=== PATIENT | female | born 1975 | race Two or more races ===

== ENCOUNTER 2022-02-08 12:46 | Emergency (ER) | payer OTHER, SELFPAY ==
[2022-02-08] VITALS (23 sets, daily range): BP systolic 113–135; BP diastolic 57–74; PULSE 89–101; RESP 18; TEMP 36.8; O2SAT 97–100; BMI 33.3
--- NOTE | 2022-02-08 13:37 | CRLHL7_ITS ---
For Patients: As a result of the Century Cures Act, medical imaging exams and procedure reports are released immediately into your electronic medical record. You may view this report before your referring provider. If you have questions, please contact your health care provider. Etiologies and has Crohn`s. INDICATION: Right abdominal pain. COMPARISON: None. TECHNIQUE: Technique: TECHNIQUE: Noncontrast CT of the abdomen pelvis. COMPARISON: None. FINDINGS: Lung bases are clear. No pericardial effusion. Normal liver size and contour. There is trace perihepatic free fluid. The gallbladder is not identified. There is no biliary dilatation. Adrenal glands normal. Midline bilateral nonobstructing renal calculi. No significant abnormality of the stomach, duodenum or pancreas. Spleen is surgically absent. Both normal course and caliber of the abdominal aorta and the IVC. There is no lymphadenopathy. Uterus and bladder are unremarkable. No bowel obstruction. Diverticulosis without evidence of acute diverticulitis. There is severe distal ileal wall thickening and gera-enteric fat stranding involving a long segment of distal terminal ileum (series 2 image [id number]; series 4 image 24). The appendix is normal. Thyroid with no acute osseus abnormality. IMPRESSION: 1. Long segment distal ileal inflammation and wall thickening consistent with an infectious or inflammatory enteritis. 2. Small volume ascites which is likely reactive. Please note that all CT scans at this facility use dose modulation, iterative reconstruction, and/or weight-based dosing when appropriate to reduce radiation dose to as low as reasonably achievable. Dictated by Brian Macario MD @ 02/08/2022 2:33:02 PM (Electronically Signed)
--- NOTE | 2022-02-08 13:39 | ED.ABDPAIN ---
HPI - Abdominal Pain General Chief Complaint: Abdominal Pain Stated Complaint: Abdominal pain Time Seen by Provider: 02/08/22 12:49 History of Present Illness HPI narrative: This 46-year-old female comes in with abdominal pain that began 5 days ago. She states that it was crampy and intermittent at that time but has become more constant now. The pain is now more localized in the right abdomen. She states that it seems to be worse with food. The pain does not radiate to her shoulder or back. She does not report any fevers. She did have vomiting on the 1st day of the pain. She has also had some diarrhea during this time. She denies having any fevers. She does have a remote history of Hodgkin's lymphoma at age 10 and recovered from that. She also states that she has a diagnosis of lupus. She is not currently taking any medications. Her abdominal pain has worsened and become more constant over these days. Last night it was 10/10 in pain. She states the pain is worse with any kind of movement. The car ride here caused pain with every little bump her quiver that she encountered. Related Data Home Medications Medication Instructions Recorded Confirmed levothyroxine 125 mcg capsule 125 mcg PO DAILY 02/08/22 02/08/22 omeprazole 40 mg capsule,delayed 40 mg PO DAILY 02/08/22 02/08/22 release zertec 02/08/22 Previous Rx's Medication Instructions Recorded hydrocodone 5 mg-acetaminophen 325 1 tab PO Q4-6H PRN pain #15 tabs 02/08/22 mg tablet methylprednisolone 4 mg tablets in See Rx Instructions PO .COMPLEX 02/08/22 a dose pack (Medrol (Cristian)) #21 ea ondansetron HCl 4 mg tablet 4 mg PO Q6H #20 tabs 02/08/22 Allergies Allergy/AdvReac Type Severity Reaction Status Date / Time ceftriaxone [From Rocephin] Allergy Severe Hives Verified 02/08/22 13:06 aspirin Allergy Mild Vomiting Verified 02/08/22 13:06 penicillin G Allergy Mild Verified 02/08/22 13:06 Review of Systems Status of ROS Reports: 10 or more systems reviewed and unremarkable except as noted in History and below Narrative Constitutional: No fevers, no weight gain or loss. Eyes: No discharge. No vision changes. HENT: No congestion, no sore throat, no ear pain. Cardiovascular: No chest pain, no palpitations. Respiratory: No shortness of breath, no wheezes, no cough. Gastrointestinal: Abdominal pain with some episodes of vomiting and diarrhea as described above. Genitourinary: No dysuria, no hematuria. Musculoskeletal: Normal range of motion. Skin: No rashes, no pruritis. Neurological: No dizziness, weakness, sensory change, speech change. Endo/Heme/Allergies: No bruising or bleeding. No polydipsia. Pysch: no suicidality, no anxiety, no insomnia. All other systems reviewed and are negative. PFSH [facility] Social History Smoking Status: Unknown if ever smoked Exam Narrative: Exam Narrative: Constitutional: Well-developed, well-nourished, no acute distress. HEENT: Normocephalic, atraumatic. Neck: Normal range of motion. Nontender. Supple. Heart: Regular. No murmurs. Normal rate. Intact distal pulses. Lungs: Clear to auscultation. No chest discomfort. No wheezes, rhonchi, or rales. Abdomen: Normal bowel sounds. Diffuse tenderness but worsening on the right abdomen. The focus of the pain appears to be more in the right upper quadrant. Rovsing sign is positive. Mild rebound tenderness. Genitalia: Deferred. Back: No midline tenderness. Normal range of motion. Extremities: Normal range of motion. No injury. Skin: Intact. No rash. Warm. No erythema or pallor. Neurologic: No altered sensation. No weakness. Alert and oriented. Psychiatric: No suicidality. No anxiety or depression. No insomnia. Nursing notes and vitals signs are reviewed. Const: Vital Signs, click to edit/add: Vital Signs - 24 hr 02/08/22 13:00 02/08/22 13:35 02/08/22 13:45 Temperature 98.2 F Pulse Rate 93 93 Pulse Rate [Left P ulse Oximeter] 99 Respiratory Rate 18 Blood Pressure Blood Pressure [Ri ght Upper Arm] 128/71 Pulse Oximetry 97 97 97 Oxygen Delivery Me thod Room Air Room Air 02/08/22 14:24 02/08/22 14:25 02/08/22 14:30 Temperature Pulse Rate 91 95 90 Pulse Rate [Left P ulse Oximeter] Respiratory Rate Blood Pressure 135/72 Blood Pressure [Ri ght Upper Arm] Pulse Oximetry 97 97 97 Oxygen Delivery Me thod 02/08/22 14:32 02/08/22 14:33 02/08/22 14:45 Temperature Pulse Rate 89 90 89 Pulse Rate [Left P ulse Oximeter] Respiratory Rate Blood Pressure 116/66 Blood Pressure [Ri ght Upper Arm] Pulse Oximetry 97 97 97 Oxygen Delivery Me thod 02/08/22 15:00 02/08/22 15:01 02/08/22 15:15 Temperature Pulse Rate 91 91 93 Pulse Rate [Left P ulse Oximeter] Respiratory Rate Blood Pressure 113/61 Blood Pressure [Ri ght Upper Arm] Pulse Oximetry 97 97 97 Oxygen Delivery Me thod 02/08/22 15:30 02/08/22 15:31 02/08/22 15:45 Temperature Pulse Rate 91 90 90 Pulse Rate [Left P ulse Oximeter] Respiratory Rate Blood Pressure 117/68 Blood Pressure [Ri ght Upper Arm] Pulse Oximetry 99 99 97 Oxygen Delivery Me thod 02/08/22 16:00 02/08/22 16:01 02/08/22 16:15 Temperature Pulse Rate 100 98 101 H Pulse Rate [Left P ulse Oximeter] Respiratory Rate Blood Pressure 114/57 L Blood Pressure [Ri ght Upper Arm] Pulse Oximetry 99 99 99 Oxygen Delivery Me thod Course Vital Signs Vital signs: Initial Vital Signs Temperature 98.2 F 02/08/22 13:00 Temperature Source Temporal Artery Scan 02/08/22 13:00 Pulse Rate 99 02/08/22 13:00 Pulse Rhythm 02/08/22 13:00 Respiratory Rate 18 02/08/22 13:00 Blood Pressure 128/71 02/08/22 13:00 Blood Pressure Mean 90 02/08/22 13:00 Blood Pressure Position Sitting 02/08/22 13:00 Pulse Oximetry 97 02/08/22 13:00 Oxygen Delivery Method 02/08/22 13:00 Vital Signs Temperature 98.2 F 02/08/22 13:00 Pulse Rate 99 02/08/22 13:00 Respiratory Rate 18 02/08/22 13:00 Blood Pressure 128/71 02/08/22 13:00 Pulse Oximetry 97 02/08/22 13:00 Oxygen Delivery Method 02/08/22 13:00 Temperature 98.2 F 02/08/22 13:00 Pulse Rate 101 H 02/08/22 16:15 Respiratory Rate 18 02/08/22 13:00 Blood Pressure 114/57 L 02/08/22 16:01 Pulse Oximetry 99 02/08/22 16:15 Oxygen Delivery Method 02/08/22 13:35 MDM - Abdominal Pain MDM Narrative Medical decision making narrative: This patient comes in with abdominal pain that is more focused in the right mid abdomen. There is suspicion of gallbladder disease or possible appendicitis. The patient states that she does not at all care for IV contrast so a CT scan was done without contrast. This returns with evidence of a segment of the ileum that is inflamed. Lab results returned with just slightly elevated white count at 12. Her sed rate is normal at 17. I spoke with the surgeon on-call, Dr. Alicea, about these findings. It seemed to her that this was an inflammatory process and not an infectious process. The patient does have a history of lupus and autoimmune thyroiditis. This could be a presentation of Crohn's disease. There were no skip lesions on the CT scan however. The patient has normal vital signs and is not appearing toxic. She wishes to return home and is okay to do so. She did receive a L of normal saline intravenously and a dose of Solu-Medrol 125 mg. I advised her to follow-up with [facility] or return to the ER if worsening symptoms occur. She received prescriptions for [place], Zofran, and Medrol Dosepak. Lab Data Labs: Lab Results 02/08/22 02/08/22 02/08/22 Range/Units 13:38 14:15 14:15 WBC 12.01 H (4.50-11.00) K/uL RBC 3.89 L (4.00-5.20) m/uL Hgb 9.6 L (12.0-16.0) gm/dL Hct 31.2 L (33.0-51.0) % MCV 80 (80-100) fL MCH 25 L (26-34) pg MCHC 31 L (32-36) gm/dL RDW Coeff of Ko 20.5 H (11.5-15.5) % Plt Count 471 H (140-440) K/uL Neut % (Auto) 68.1 (42.0-72.0) % Lymph % (Auto) 20.7 (20-44) % [place] % (Auto) 9.6 (0.0-11.0) % Eos % (Auto) 1.0 (0.0-7.0) % Baso % (Auto) 0.4 (0.0-3.0) % Neut # (Auto) 8.20 H (1.7-7.0) K/uL Lymph # (Auto) 2.50 (0.90-2.90) K/uL [place] # (Auto) 1.20 H (0.00-0.90) K/UL Eos # (Auto) 0.10 (0.00-0.50) K/uL Baso # (Auto) 0.00 (0.00-0.30) K/uL ESR 17 (2-20) mm/hr Sodium (135-149) mmol/L Potassium (3.6-5.1) mmol/L Chloride (96-114) mmol/L Carbon Dioxide (20-32) mmol/L BUN (5-24) mg/dL Creatinine (0.5-1.5) mg/dL Estimated Creat Clear Estimated GFR ml/min Glucose (60-115) mg/dL Calcium (8.4-10.6) mg/dL Total Bilirubin (0.1-1.5) mg/dL Direct Bilirubin (0.0-0.5) mg/dL AST (12-35) U/L ALT (4-35) U/L Alkaline Phosphatase (40-150) U/L C-Reactive Protein (0.5-1.0) mg/dL Total Protein (6.0-8.3) g/dL Albumin (3.3-5.0) g/dL Lipase (23-300) U/L POC Troponin I 0.01 (0.01-0.04) ng/ml 02/08/22 Range/Units 14:15 WBC (4.50-11.00) K/uL RBC (4.00-5.20) m/uL Hgb (12.0-16.0) gm/dL Hct (33.0-51.0) % MCV (80-100) fL MCH (26-34) pg MCHC (32-36) gm/dL RDW Coeff of Ko (11.5-15.5) % Plt Count (140-440) K/uL Neut % (Auto) (42.0-72.0) % Lymph % (Auto) (20-44) % [place]field % (Auto) (0.0-11.0) % Eos % (Auto) (0.0-7.0) % Baso % (Auto) (0.0-3.0) % Neut # (Auto) (1.7-7.0) K/uL Lymph # (Auto) (0.90-2.90) K/uL [place]field # (Auto) (0.00-0.90) K/UL Eos # (Auto) (0.00-0.50) K/uL Baso # (Auto) (0.00-0.30) K/uL ESR (2-20) mm/hr Sodium 138 (135-149) mmol/L Potassium 3.2 L (3.6-5.1) mmol/L Chloride 105 (96-114) mmol/L Carbon Dioxide 27 (20-32) mmol/L BUN 8 (5-24) mg/dL Creatinine 0.5 (0.5-1.5) mg/dL Estimated Creat Clear 162.58 Estimated GFR 116 ml/min Glucose 114 (60-115) mg/dL Calcium 9.1 (8.4-10.6) mg/dL Total Bilirubin 0.4 (0.1-1.5) mg/dL Direct Bilirubin 0.2 (0.0-0.5) mg/dL AST 63 H (12-35) U/L ALT 25 (4-35) U/L Alkaline Phosphatase 73 (40-150) U/L C-Reactive Protein 1.3 H (0.5-1.0) mg/dL Total Protein 7.2 (6.0-8.3) g/dL Albumin 4.0 (3.3-5.0) g/dL Lipase 87 (23-300) U/L POC Troponin I (0.01-0.04) ng/ml Imaging Data CT scan - abdomen: Radiologist's impression: FINDINGS: Lung bases are clear. No pericardial effusion. Normal liver size and contour. There is trace perihepatic free fluid. The gallbladder is not identified. There is no biliary dilatation. Adrenal glands normal. Midline bilateral nonobstructing renal calculi. No significant abnormality of the stomach, duodenum or pancreas. Spleen is surgically absent. Both normal course and caliber of the abdominal aorta and the IVC. There is no lymphadenopathy. Uterus and bladder are unremarkable. No bowel obstruction. Diverticulosis without evidence of acute diverticulitis. There is severe distal ileal wall thickening and gera-enteric fat stranding involving a long segment of distal terminal ileum (series 2 image [id number]; series 4 image 24). The appendix is normal. Thyroid with no acute osseus abnormality. IMPRESSION: 1. Long segment distal ileal inflammation and wall thickening consistent with an infectious or inflammatory enteritis. 2. Small volume ascites which is likely reactive. Discharge Plan Discharge Clinical Impression: Ileitis, Abdominal pain Patient Disposition: Home, Self-Care Condition: Stable Additional Instructions: Take medication as needed and indicated. Follow up with [facility]. Call [phone] for appointment. Return if worsening symptoms happen. Prescriptions: New hydrocodone-acetaminophen 5-325 mg tablet 1 tab PO Q4-6H PRN (Reason: pain) Qty: 15 0RF ondansetron HCl 4 mg tablet 4 mg PO Q6H Qty: 20 0RF methylprednisolone [Medrol (Cristian)] 4 mg tablets,dose pack See Rx Instructions .ROUTE .COMPLEX Qty: 21 0RF Rx Instructions: orally per package directions No Action omeprazole 40 mg capsule,delayed release(DR/EC) 40 mg PO DAILY levothyroxine 125 mcg capsule 125 mcg PO DAILY zertec Follow Up/Referrals: Provider,Not a Local [Primary Care Provider] - Stand Alone Forms: [facility] Info Instructions Procedures Ultrasound Biliary exam #1: Anatomical areas examined: gallbladder, long and short axis Indications: RUQ/epigastric pain Exam type: limited abdominal ultrasound; RUQ Description/Findings: Exam is limited with body habitus and recent food intake so the gallbladder is contracted. There is no obvious sign of gallstones. Common bile duct is visualized and appears normal also.
[2022-02-08 14:29] LABS: Basophils Percent Auto 0.4 % (0.0-3.0); Hematocrit 31.2 % (33.0-51.0); Hemoglobin* 9.6 gm/dL (12.0-16.0); Immature Granulocytes Pct Auto 0.2 %; Lymphocytes Percent Auto 20.7 % (20-44); Mean Corpuscular HGB Conc 31 gm/dL (32-36); Mean Corpuscular Hemoglobin 25 pg (26-34); Mean Corpuscular Volume 80 fL (80-100); Monocytes Percent Auto 9.6 % (0.0-11.0); Neutrophils Percent Auto 68.1 % (42.0-72.0); Platelet Count* 471 K/uL (140-440); RDW Coefficient of Variation % 20.5 % (11.5-15.5); Red Blood Count 3.89 m/uL (4.00-5.20); White Blood Count* 12.01 K/uL (4.50-11.00)
[2022-02-08 14:31] LABS: Slide Review Reflex No
[2022-02-08 14:32] LABS: Troponin, Point-of-Care* 0.01 ng/ml (0.01-0.04)
[2022-02-08 14:40] LABS: Chloride* 105 mmol/L (96-114)
[2022-02-08 14:41] LABS: Potassium* 3.2 mmol/L (3.6-5.1); Sodium* 138 mmol/L (135-149)
[2022-02-08 14:43] LABS: Alkaline Phosphatase* 73 U/L (40-150); Aspartate Amino Transferase* 63 U/L (12-35); Bilirubin Direct* 0.2 mg/dL (0.0-0.5); Bilirubin Total* 0.4 mg/dL (0.1-1.5); Blood Urea Nitrogen* 8 mg/dL (5-24); Carbon Dioxide* 27 mmol/L (20-32); Creatinine* 0.5 mg/dL (0.5-1.5); Est. Creatinine Clearance* 162.58; Estimated Glomerular Filt Rate 116 ml/min; Total Protein* 7.2 g/dL (6.0-8.3)
[2022-02-08 14:44] LABS: Alanine Aminotransferase* 25 U/L (4-35); Calcium* 9.1 mg/dL (8.4-10.6); Glucose* 114 mg/dL (60-115); Lipase* 87 U/L (23-300)
[2022-02-08 14:46] LABS: C Reactive Protein* 1.3 mg/dL (0.5-1.0)
[2022-02-08 15:07] LABS: Erythrocyte SedimentationRate* 17 mm/hr (2-20)
[2022-02-08] MEDS: 0.9 % SODIUM CHLORIDE 1000 ml 1,000 ML IV (15:42)
[2022-02-08] MEDS: METHYLPREDNISOLONE SOD SUCC 62.5 MG/ML (125) 125 MG IVP (15:42)
== END 2022-02-08 17:09 | disposition home or self-care (01) ==
PROVIDERS: Emergency Provider Emergency Medicine Emergency Medical Services
DX: R10.9 Unspecified abdominal pain (principal); K52.9 Noninfective gastroenteritis and colitis, unspecified
CPT/HCPCS: 36415; 74176; 76705; 80048; 80076; 83690; 84484; 85025; 85651; 86140; 96374; 99284; 99285; J2930; J7030